=== PATIENT | male | born 1970 | race Caucasian/White ===

== ENCOUNTER 2016-11-03 09:39 | Emergency (ER) | payer SELFPAY ==
[~2016-11-03] VITALS: Ht 167.6 cm; Wt 70.0 kg
[2016-11-03 09:40] VITALS: BP 112/74
== END 2016-11-03 14:55 | disposition left against medical advice (07) ==
LOC: ER 09:43
DX: F10.129 Alcohol abuse with intoxication, unspecified (principal); Z53.21 Procedure and treatment not carried out due to patient leaving prior to being seen by health care provider